=== PATIENT | male | born 1955 | race Caucasian/White ===

== ENCOUNTER 2017-04-14 09:15 | Day surgery (SDC) | payer BC ==
[~2017-04-14] VITALS: Ht 188 cm; Wt 105.9 kg
[2017-04-14 10:01] VITALS: BP 156/79; PULSE 72; TEMP 97.9
[2017-04-14] MEDS ORDERED: MONODOX100 PO (10:18)
[2017-04-14 12:31] VITALS: BP 113/59; PULSE 57; TEMP 97.3
[2017-04-14 12:46] VITALS: BP 123/59; PULSE 55
[2017-04-14] MEDS ORDERED: COLACE 100100 MG/CAP PO (12:51)
[2017-04-14] MEDS ORDERED: MOTRIN 600600 MG/TAB PO (12:51)
[2017-04-14] MEDS ORDERED: NORCO 325 MG-51 TAB PO (12:52)
[2017-04-14 13:01] VITALS: BP 106/59; PULSE 58
[2017-04-14 13:16] VITALS: BP 104/49; PULSE 58
[2017-04-14 13:46] VITALS: BP 111/53; PULSE 65
== END 2017-04-14 14:19 | disposition home or self-care (01) ==
LOC: EDBD 09:15 → SDCO 09:15
DX: R59.1 Generalized enlarged lymph nodes (principal); G47.33 Obstructive sleep apnea (adult) (pediatric); F32.9 Major depressive disorder, single episode, unspecified; N40.0 Benign prostatic hyperplasia without lower urinary tract symptoms; M79.669 Pain in unspecified lower leg; F17.210 Nicotine dependence, cigarettes, uncomplicated; M19.012 Primary osteoarthritis, left shoulder
CPT/HCPCS: J1885; J2250; J2405; J2704; J3010; J7120